=== PATIENT | female | born 1995 | race Caucasian/White ===

== ENCOUNTER 2022-11-02 11:04 | Observation (INO) | payer OTHER, SELFPAY ==
[2022-11-02] VITALS (10 sets, daily range): BP systolic 120–140; BP diastolic 71–84; PULSE 89–106; RESP 16
[2022-11-02 12:17] LABS: Basophils Absolute Auto 0.1 10^3/uL (0.0-0.1); Basophils Percent Auto 0.3 % (0.2-2.0); Eosinophils Absolute Auto 0.1 10^3/uL (0.0-0.7); Eosinophils Percent Auto 0.4 % (0.9-7.0); Hematocrit 36.2 % (36.0-48.0); Hemoglobin 11.5 g/dL (12.0-16.0); Immature Granulocytes Abs Auto 0.18 10^3/uL (0.00-0.03); Immature Granulocytes Pct Auto 1.1 % (0.0-0.5); Lymphocytes Absolute Auto 2.5 10^3/uL (1.2-3.8); Lymphocytes Percent Auto 15.9 % (20.5-60.0); Mean Corpuscular HGB Conc 31.8 g/dL (29.9-35.2); Mean Corpuscular Hemoglobin 27.1 pg (26.7-34.0); Mean Corpuscular Volume 85.2 fL (81.0-99.0); Mean Platelet Volume 11.3 fL (9.5-13.5); Monocytes Absolute Auto 0.8 10^3/uL (0.3-0.8); Monocytes Percent Auto 5.2 % (1.7-12.0); Neutrophils Absolute Auto 12.2 10^3/uL (1.4-6.5); Neutrophils Percent Auto 77.1 % (43.0-75.0); Platelet Count 271 10^3/uL (150-450); Red Blood Count 4.25 10^6/uL (4.20-5.40); Red Cell Distribution Width 14.7 % (11.0-15.0); White Blood Count 15.9 10^3/uL (4.0-11.0)
[2022-11-02 12:48] LABS: Alanine Aminotransferase 19 U/L (14-59); Albumin Globulin Ratio 0.5; Albumin Level 2.3 g/dL (3.4-5.0); Alkaline Phosphatase 155 U/L (46-116); Anion Gap 16.1; Aspartate Amino Transferase 16 U/L (15-37); BUN Creatinine Ratio 12.9; Bilirubin Total 0.2 mg/dL (0.2-1.0); Calcium 9.1 mg/dL (8.5-10.1); Carbon Dioxide 21.8 mmol/L (21.0-32.0); Chloride 102 mmol/L (98-107); Estimated GFR (African America >60 (>=60); Estimated GFR (Non-African Ame >60 (>=60); Globulin 4.5 g/dL; Glucose 75 mg/dL (74-106); Lactate Dehydrogenase 194 U/L (81-234); Potassium 3.9 mmol/L (3.5-5.1); Sodium 136 mmol/L (136-145); Total Protein 6.8 g/dL (6.4-8.2); Uric Acid 5.1 mg/dL (2.6-6.0)
[2022-11-02 13:24] LABS: Creatinine Urine Random 148.88 mg/dL (20.00-300.00); Total Protein Urine Random 44.4 mg/dL (<=11.9)
== END 2022-11-02 15:30 | disposition home or self-care (01) ==
LOC: FBC 11:07
PROVIDERS: Midwife; Admitting Provider Obstetrics & Gynecology; PCP Family Medicine; Visit Provider Obstetrics & Gynecology
DX: O16.9 Unspecified maternal hypertension, unspecified trimester (principal); Z3A.00 Weeks of gestation of pregnancy not specified
CPT/HCPCS: 36415; 59025; 80053; 82570; 83615; 84156; 84550; 85025; G0378; G0379

== ENCOUNTER 2022-11-03 10:55 | Inpatient (IN) | payer OTHER, SELFPAY ==
[2022-11-03] VITALS (31 sets, daily range): BP systolic 82–139; BP diastolic 54–93; PULSE 66–129; RESP 10–30; TEMP 36.4–36.9; O2SAT 97–100
--- NOTE | 2022-11-03 11:30 | PM.OBHP ---
OB - H&P: HPI History of Present Illness Chief complaint: C SECTION : 1 Para: 0 Gestational age based on last menstrual period: 38 w 4d Indications for induction: maternal hypertension and other History of Present Dating criteria: LMP confirmed by 1st trimester US care: good care Ultrasounds: normal 1st trimester US and normal mid trimester US complications comment: elevated blood pressure third trimester Medical complications OB: none Labs Blood type: O (+) positive Rubella: nonimmune RPR/VDLR: nonreactive GBS status: negative HBsAG: negative Review of Systems ROS Status of ROS 10 or more systems reviewed and unremarkable except as noted in history and below Meds Home Medications and Allergies Allergies Allergy/AdvReac Type Severity Reaction Status Date / Time Penicillins Allergy Mild Verified 11/02/22 16:36 Exam Constitutional Vital Signs - 24 hr 11/03/22 11:28 Pulse Rate 92 H Blood Pressure 139/93 H Common normals: no apparent distress
[2022-11-03] MEDS: CITRIC ACID/SODIUM CITRATE 30 ML SOLUTION ORACIT SHOHL'S SOLN PO (11:58)
[2022-11-03] MEDS: CEFAZOLIN SODIUM/DEXTROSE 2 GM/50 ML PIGGYBACK IV (12:00)
[2022-11-03] MEDS: 0.9 % SODIUM CHLORIDE 1,000 ML 1000 ML IV ×2 (12:07→12:55)
[2022-11-03 12:36] LABS: Amphetamine Screen Urine NEGATIVE (NEGATIVE); Barbiturates Screen Urine NEGATIVE (NEGATIVE); Benzodiazepines Screen Urine NEGATIVE (NEGATIVE); Buprenorphine Screen Urine NEGATIVE (NEGATIVE); Cannabinoid Screen Urine NEGATIVE (NEGATIVE); Cocaine Screen Urine NEGATIVE (NEGATIVE); Methadone Screen Urine NEGATIVE (NEGATIVE); Methamphetamines Screen Urine NEGATIVE (NEGATIVE); Opiate Screen Urine NEGATIVE (NEGATIVE); Oxycodone Screen Urine NEGATIVE (NEGATIVE); Phencyclidine Screen Urine NEGATIVE (NEGATIVE); Tricyclic Antidepressant Urine NEGATIVE (NEGATIVE)
[2022-11-03 12:54] LABS: Basophils Absolute Auto 0.1 10^3/uL (0.0-0.1); Basophils Percent Auto 0.3 % (0.2-2.0); Eosinophils Absolute Auto 0.1 10^3/uL (0.0-0.7); Eosinophils Percent Auto 0.6 % (0.9-7.0); Hematocrit 36.2 % (36.0-48.0); Hemoglobin 11.8 g/dL (12.0-16.0); Immature Granulocytes Abs Auto 0.17 10^3/uL (0.00-0.03); Lymphocytes Absolute Auto 3.7 10^3/uL (1.2-3.8); Lymphocytes Percent Auto 21.1 % (20.5-60.0); Mean Corpuscular HGB Conc 32.6 g/dL (29.9-35.2); Mean Corpuscular Hemoglobin 27.2 pg (26.7-34.0); Mean Corpuscular Volume 83.4 fL (81.0-99.0); Mean Platelet Volume 11.1 fL (9.5-13.5); Monocytes Percent Auto 5.7 % (1.7-12.0); Neutrophils Absolute Auto 12.4 10^3/uL (1.4-6.5); Neutrophils Percent Auto 71.3 % (43.0-75.0); Platelet Count 315 10^3/uL (150-450); Red Blood Count 4.34 10^6/uL (4.20-5.40); Red Cell Distribution Width 14.7 % (11.0-15.0); White Blood Count 17.3 10^3/uL (4.0-11.0)
--- NOTE | 2022-11-03 13:42 | PM.ONB ---
Brief Operative Note Date of procedure: 11/03/22 Pre-op diagnosis: iup at 38 4/7wks, breech presentation Post-op diagnosis: same Procedure: Patient was taken back to the Operating Room where she was given a spinal anesthesia with Duramorph without difficulty. She was prepped and draped in the normal sterile fashion. A Pfannenstiel skin incision was then made 2?cm above the symphysis pubis and carried down to underlying rectus fascia using a Bovie. The fascia was incised in the midline and extended laterally using Reza scissors. Two Sivan clamps were placed on the superior aspect of the fascia and dissected off the underlying rectus muscles. The same was performed on the inferior aspect as well. The muscles were then in the midline. Peritoneum was identified and entered bluntly. The peritoneum was then extended superiorly and inferiorly with good visualization of the bladder. The bladder blade was inserted. Vesicouterine peritoneum was identified, tented up, and entered with Metzenbaum scissors. A bladder flap was then created digitally. The bladder blade was reinserted. A low transverse incision was made on the patient's uterus and extended laterally digitally. The was then delivered atraumatically after the bladder blade was removed in the breech position. The cord was clamped and cut. Cord blood was obtained. The infant was handed off to awaiting team. The patient's placenta was spontaneously delivered. The uterus was then exteriorized. The uterus was cleared of all clots and debris. The bladder blade was reinserted. The patient's uterine incision was closed using #0 Vicryl in a running lock fashion. Excellent hemostasis was assured.? The uterus was then returned to the patient's abdomen. The patient's abdomen was copiously irrigated using warm saline. Peritoneal gutters were cleared of all clots and debris. Again excellent hemostasis was assured. The patient's peritoneum was closed using 3?0?Vicryl in a running fashion. The patient's fascia was closed using #0 Vicryl in a running fashion. The patient's skin was closed using 4-0 Vicryl subcuticularly. The patient tolerated the procedure well. Sponge, lap, and needle counts were correct x2. The patient was taken to the Recovery Room in stable condition. Anesthesia: spinal Surgeon: Forrest Clark Job Placement Officer: GLORIA GABRIEL Estimated blood loss (mL): 700 Pathology: none sent Condition: stable Disposition: PACU
[2022-11-03] MEDS: ONDANSETRON PF 4 MG/2 ML VIAL IV (15:15)
--- NOTE | 2022-11-03 15:15 | PC.NURSE ---
1415 Patient was cleansed and chux and gown changed. Oliver care provided.
--- NOTE | 2022-11-03 15:32 | RESP.RT ---
Done per nursing
--- NOTE | 2022-11-03 16:19 | PC.NURSE ---
1411- Report from Mary. Care assumed after bedside report. Nb to breast, gown changed, piper care provided.
[2022-11-03] MEDS: KETOROLAC TROMETHAMINE 30 MG/ML VIAL IVP (19:31)
[2022-11-03] MEDS: CEFAZOLIN SODIUM/DEXTROSE,ISO 2 GM/50 ML PIGGYBACK IV (20:58)
--- NOTE | 2022-11-03 21:33 | W.PC.ACHO ---
Registration Status: ADM IN Primary Language: Ugandan Preferred Language: Ugandan Active Medications Generic Name Dose Route Start Last Admin Trade Name Freq PRN Reason Stop Dose Admin Al Hydroxide/Mg Hydroxide 2,400 mg 11/03/22 13:33 Magnesium Hydroxide 2,400 Mg/10 Ml Oral.Susp PO Q6H PRN Dyspepsia Diphenhydramine HCl 25 mg 11/03/22 13:33 Diphenhydramine Hcl 50 Mg/Ml (1ml) Vial IV 11/04/22 13:38 Q6H PRN Itching Docusate Sodium 100 mg 11/04/22 09:00 Docusate Sodium 100 Mg Capsule PO BID ROSSANA Enoxaparin Sodium 40 mg 11/04/22 17:00 Enoxaparin Sodium 40 Mg/0.4 Ml Syringe SUBQ Q24H ROSSANA Sodium Chloride 1,000 mls @ 125 mls/hr 11/03/22 13:45 Sodium Chloride 0.9% 1,000 Ml IV .Q8H ROSSANA Oxytocin 20 unit/ Sodium 1,002 mls @ 125 mls/hr 11/03/22 13:45 11/03/22 15:04 Chloride IV 11/03/22 21:44 125 mls/hr Q8H ROSSANA 125 mls/hr Administration Ibuprofen 800 mg 11/03/22 13:33 Ibuprofen 400 Mg Tablet PO Q8H PRN Pain Ketorolac Tromethamine 30 mg 11/03/22 13:33 11/03/22 19:31 Ketorolac Tromethamine 30 Mg/Ml Vial IVP 11/05/22 13:34 30 mg Q6H PRN Administration Pain Nalbuphine HCl 10 mg 11/03/22 13:33 Nalbuphine Hcl 10 Mg/Ml Ampule IV 11/04/22 13:38 Q3H PRN Itching Ondansetron HCl 4 mg 11/03/22 13:33 11/03/22 15:15 Ondansetron Pf 4 Mg/2 Ml Vial IV 4 mg Q6H PRN Administration Nausea And Vomiting Oxycodone/Acetaminophen 1 each 11/03/22 13:33 Oxycodone Hcl/Acetaminophen 5-325 Mg Tablet PO Q4H PRN Pain Oxycodone/Acetaminophen 2 each 11/03/22 13:33 Oxycodone Hcl/Acetaminophen 5-325 Mg Tablet PO Q4H PRN Pain Senna 17.2 mg 11/03/22 20:00 Sennosides 8.6 Mg Tablet PO QHS PRN Constipation Simethicone 80 mg 11/03/22 13:33 Simethicone 80 Mg Tab.Chew PO QID PRN Abdominal Distention Diet Category Date Time Status Regular Consistency Diet Diet 11/03/22 Dinner Active Consults Category Date Time Status Consult to Anesthesiology Routine Cons 11/03/22 11:23 Ordered IV Insertion/Site Date of IV Line Insertion [ 11/03/22 Short PIV (<1.75 in) 20g left Antecubital] Date of IV Line Insertion [ 11/03/22 Short PIV (<1.75 in) 20g left Antecubital] IV Insertion Time [Short PIV ( 11:30 <1.75 in) 20g left Antecubital ] Neurology Patient orientation (short person,place,time list) Respiratory Pulse Oximetry 99 Pulse Oximetry 99 Pulse Oximetry 98 Pulse Oximetry 98 Pulse Oximetry 98 Pulse Oximetry 97 Pulse Oximetry 98 Pulse Oximetry 100 Pulse Oximetry 100 Oxygen Delivery Method Room Air Oxygen Delivery Method Room Air Oxygen Delivery Method Room Air Oxygen Delivery Method Room Air Catheter Urinary Catheter Date of 11/03/22 Insertion [Urethral] Urinary Catheter Time of 11:30 Insertion [Urethral]
--- NOTE | 2022-11-03 23:12 | PC.NURSE ---
Surgical dressing clean dry and intact.
[2022-11-04] VITALS (7 sets, daily range): BP systolic 105–123; BP diastolic 61–74; PULSE 86–91; RESP 14–18; TEMP 36.8–37.1
[2022-11-04] MEDS: KETOROLAC TROMETHAMINE 30 MG/ML VIAL IVP ×3 (02:09→15:07)
[2022-11-04 06:32] LABS: Basophils Percent Auto 0.3 % (0.2-2.0); Eosinophils Absolute Auto 0.1 10^3/uL (0.0-0.7); Eosinophils Percent Auto 0.4 % (0.9-7.0); Hematocrit 26.9 % (36.0-48.0); Hemoglobin 8.7 g/dL (12.0-16.0); Immature Granulocytes Abs Auto 0.18 10^3/uL (0.00-0.03); Immature Granulocytes Pct Auto 1.1 % (0.0-0.5); Lymphocytes Percent Auto 18.7 % (20.5-60.0); Mean Corpuscular HGB Conc 32.3 g/dL (29.9-35.2); Mean Corpuscular Hemoglobin 27.7 pg (26.7-34.0); Mean Corpuscular Volume 85.7 fL (81.0-99.0); Mean Platelet Volume 11.5 fL (9.5-13.5); Monocytes Absolute Auto 1.3 10^3/uL (0.3-0.8); Neutrophils Absolute Auto 11.3 10^3/uL (1.4-6.5); Neutrophils Percent Auto 71.5 % (43.0-75.0); Platelet Count 159 10^3/uL (150-450); Red Blood Count 3.14 10^6/uL (4.20-5.40); Red Cell Distribution Width 14.9 % (11.0-15.0); White Blood Count 15.8 10^3/uL (4.0-11.0)
--- NOTE | 2022-11-04 06:56 | PM.OBPN ---
OB - PN: Subj Subjective Patient comments: no complaints and pain well controlled Exam Constitutional Vital Signs - 24 hr 11/03/22 11:28 11/03/22 15:00 11/03/22 15:13 Temperature Pulse Rate 92 H 94 H 90 Respiratory Rate Blood Pressure 139/93 H 100/54 L 99/55 L Pulse Oximetry Oxygen Delivery Method 11/03/22 15:17 11/03/22 15:29 11/03/22 15:34 Temperature Pulse Rate 92 H 129 H 98 H Respiratory Rate Blood Pressure 100/58 L 131/86 H 107/57 L Pulse Oximetry Oxygen Delivery Method 11/03/22 15:43 11/03/22 15:58 11/03/22 16:13 Temperature Pulse Rate 88 89 101 H Respiratory Rate Blood Pressure 109/59 L 116/63 123/66 H Pulse Oximetry Oxygen Delivery Method 11/03/22 16:28 11/03/22 16:43 11/03/22 16:58 Temperature Pulse Rate 99 H 99 H 89 Respiratory Rate Blood Pressure 116/70 116/70 117/73 Pulse Oximetry Oxygen Delivery Method 11/03/22 17:13 11/03/22 17:28 11/03/22 17:43 Temperature Pulse Rate 88 99 H 91 H Respiratory Rate Blood Pressure 118/64 125/72 H 116/62 Pulse Oximetry Oxygen Delivery Method 11/03/22 13:41 11/03/22 13:51 11/03/22 14:11 Temperature 97.8 F Pulse Rate 109 H 99 H Respiratory Rate 14 12 Blood Pressure 103/57 L 98/62 Pulse Oximetry 100 99 Oxygen Delivery Method Room Air Room Air Room Air 11/03/22 13:43 11/03/22 13:46 11/03/22 13:51 Temperature Pulse Rate 123 H 66 83 Respiratory Rate 22 30 H 18 Blood Pressure 103/57 L 82/58 L 131/70 H Pulse Oximetry 100 98 97 Oxygen Delivery Method 11/03/22 13:56 11/03/22 14:00 11/03/22 14:00 Temperature Pulse Rate 88 113 H 90 Respiratory Rate 10 L 21 11 L Blood Pressure 107/62 Pulse Oximetry 98 98 98 Oxygen Delivery Method 11/03/22 14:05 11/03/22 16:09 11/03/22 14:11 Temperature 98.4 F 98.4 F Pulse Rate 105 H Respiratory Rate 14 18 18 Blood Pressure 98/62 Pulse Oximetry 99 Oxygen Delivery Method Room Air 11/03/22 16:47 11/03/22 17:58 11/03/22 18:13 Temperature 98 F Pulse Rate 90 98 H Respiratory Rate 18 Blood Pressure 122/65 H 115/69 Pulse Oximetry Oxygen Delivery Method 11/03/22 18:28 11/03/22 18:43 11/03/22 21:34 Temperature Pulse Rate 106 H 105 H 87 Respiratory Rate Blood Pressure 117/74 123/73 H 111/69 Pulse Oximetry Oxygen Delivery Method 11/04/22 02:20 11/04/22 05:19 11/03/22 21:30 Temperature Pulse Rate 86 91 H Respiratory Rate 16 Blood Pressure 105/63 123/74 H Pulse Oximetry Oxygen Delivery Method Room Air 11/03/22 21:30 11/04/22 02:20 11/04/22 02:20 Temperature 97.6 F 98.7 F Pulse Rate 86 Respiratory Rate 14 14 Blood Pressure Pulse Oximetry Oxygen Delivery Method Room Air Room Air Documenting provider has reviewed patient's vital signs: yes Common normals: no apparent distress Respiratory Common normals: normal respiratory effort and clear to auscultation bilaterally Cardio Common normals: regular rate and regular rhythm GI Common normals: Normal to inspection, nondistended, normoactive bowel sounds present, soft to palpation and non-tender Extremity Common normals: normal to inspection, no clubbing, cyanosis or edema and no calf tenderness Results Labs Labs: Short CBC 11/03/22 11/04/22 Range/Units 12:45 06:18 WBC 17.3 H 15.8 H (4.0-11.0) 10^3/uL Hgb 11.8 L 8.7 L (12.0-16.0) g/dL Hct 36.2 26.9 L (36.0-48.0) % Plt Count 315 159 (150-450) 10^3/uL OB - PN: A/P Plan - Vaginal Delivery day: 1 Plan: routine care and discharge home Time Spent with Patient Time: Total time spent is greater than 50% in coordination of care (as documented) at patient's floor/unit and/or counseling patient: Total time spent with greater than 50% in coordination of care (as documented) at patient's floor/unit and/or counseling patient: less than 15 minutes
--- NOTE | 2022-11-04 07:43 | W.PC.ACHO ---
Registration Status: ADM IN Primary Language: Welsh Preferred Language: Welsh 0720- Report given to Pura Holcomb RN Active Medications Generic Name Dose Route Start Last Admin Trade Name Freq PRN Reason Stop Dose Admin Al Hydroxide/Mg Hydroxide 2,400 mg 11/03/22 13:33 Magnesium Hydroxide 2,400 Mg/10 Ml Oral.Susp PO Q6H PRN Dyspepsia Diphenhydramine HCl 25 mg 11/03/22 13:33 Diphenhydramine Hcl 50 Mg/Ml (1ml) Vial IV 11/04/22 13:38 Q6H PRN Itching Docusate Sodium 100 mg 11/04/22 09:00 Docusate Sodium 100 Mg Capsule PO BID ROSSANA Enoxaparin Sodium 40 mg 11/04/22 17:00 Enoxaparin Sodium 40 Mg/0.4 Ml Syringe SUBQ Q24H ROSSANA Sodium Chloride 1,000 mls @ 125 mls/hr 11/03/22 13:45 Sodium Chloride 0.9% 1,000 Ml IV .Q8H ROSSANA Ibuprofen 800 mg 11/03/22 13:33 Ibuprofen 400 Mg Tablet PO Q8H PRN Pain Ketorolac Tromethamine 30 mg 11/03/22 13:33 11/04/22 02:09 Ketorolac Tromethamine 30 Mg/Ml Vial IVP 11/05/22 13:34 30 mg Q6H PRN Administration Pain Nalbuphine HCl 10 mg 11/03/22 13:33 Nalbuphine Hcl 10 Mg/Ml Ampule IV 11/04/22 13:38 Q3H PRN Itching Ondansetron HCl 4 mg 11/03/22 13:33 11/03/22 15:15 Ondansetron Pf 4 Mg/2 Ml Vial IV 4 mg Q6H PRN Administration Nausea And Vomiting Oxycodone/Acetaminophen 1 each 11/03/22 13:33 Oxycodone Hcl/Acetaminophen 5-325 Mg Tablet PO Q4H PRN Pain Oxycodone/Acetaminophen 2 each 11/03/22 13:33 Oxycodone Hcl/Acetaminophen 5-325 Mg Tablet PO Q4H PRN Pain Senna 17.2 mg 11/03/22 20:00 Sennosides 8.6 Mg Tablet PO QHS PRN Constipation Simethicone 80 mg 11/03/22 13:33 Simethicone 80 Mg Tab.Chew PO QID PRN Abdominal Distention Diet Category Date Time Status Regular Consistency Diet Diet 11/03/22 Dinner Active Consults Category Date Time Status Consult to Anesthesiology Routine Cons 11/03/22 11:23 Ordered IV Insertion/Site Date of IV Line Insertion [22g 11/04/22 left Forearm] Date of IV Line Insertion [ 11/03/22 Short PIV (<1.75 in) 20g left Antecubital] Date of IV Line Insertion [ 11/03/22 Short PIV (<1.75 in) 20g left Antecubital] IV Insertion Time [22g left 02:00 Forearm] IV Insertion Time [Short PIV ( 11:30 <1.75 in) 20g left Antecubital ] Neurology Patient orientation (short person,place,time list) [place] coma scale total score 15 Reva coma scale total score 15 [place] coma scale total score 15 Respiratory Lung sounds [Throughout] clear Lung sounds [Throughout] clear Lung sounds [Throughout] clear Pulse Oximetry 99 Pulse Oximetry 99 Pulse Oximetry 98 Pulse Oximetry 98 Pulse Oximetry 98 Pulse Oximetry 97 Pulse Oximetry 98 Pulse Oximetry 100 Pulse Oximetry 100 Oxygen Delivery Method Room Air Oxygen Delivery Method Room Air Oxygen Delivery Method Room Air Oxygen Delivery Method Room Air Oxygen Delivery Method Room Air Oxygen Delivery Method Room Air Oxygen Delivery Method Room Air Oxygen Delivery Method Room Air Oxygen Delivery Method Room Air Bowels Bowel Pattern No Bowel Movement Bowel Pattern No Bowel Movement Bowel Pattern No Bowel Movement Renal Bladder Pattern Continent Bladder Pattern Continent Bladder Pattern Continent Catheter Urinary Catheter Date of 11/03/22 Insertion [Urethral] Urinary Catheter Time of 11:30 Insertion [Urethral]
[2022-11-04] MEDS: DOCUSATE SODIUM 100 MG CAPSULE PO ×2 (09:11→20:54)
[2022-11-04] MEDS: ENOXAPARIN SODIUM 40 MG/0.4 ML SYRINGE SUBQ (18:30)
[2022-11-04] MEDS: ACETAMINOPHEN 500 MG TABLET 1000 MG PO (18:30)
--- NOTE | 2022-11-04 19:38 | W.PC.ACHO ---
Registration Status: ADM IN Primary Language: Greek Preferred Language: Greek Report given to Otoniel CANTU at 1920 Active Medications Generic Name Dose Route Start Last Admin Trade Name Freq PRN Reason Stop Dose Admin Acetaminophen 1,000 mg 11/04/22 18:10 11/04/22 18:30 Acetaminophen 500 Mg Tablet PO 1,000 mg Q6H PRN Administration Pain Al Hydroxide/Mg Hydroxide 2,400 mg 11/03/22 13:33 Magnesium Hydroxide 2,400 Mg/10 Ml Oral.Susp PO Q6H PRN Dyspepsia Docusate Sodium 100 mg 11/04/22 09:00 11/04/22 09:11 Docusate Sodium 100 Mg Capsule PO 100 mg BID ROSSANA Administration Enoxaparin Sodium 40 mg 11/04/22 17:00 11/04/22 18:30 Enoxaparin Sodium 40 Mg/0.4 Ml Syringe SUBQ 40 mg Q24H ROSSANA Administration Sodium Chloride 1,000 mls @ 125 mls/hr 11/03/22 13:45 Sodium Chloride 0.9% 1,000 Ml IV .Q8H ROSSANA Ibuprofen 800 mg 11/03/22 13:33 Ibuprofen 400 Mg Tablet PO Q8H PRN Pain Ketorolac Tromethamine 30 mg 11/03/22 13:33 11/04/22 15:07 Ketorolac Tromethamine 30 Mg/Ml Vial IVP 11/05/22 13:34 30 mg Q6H PRN Administration Pain Ondansetron HCl 4 mg 11/03/22 13:33 11/03/22 15:15 Ondansetron Pf 4 Mg/2 Ml Vial IV 4 mg Q6H PRN Administration Nausea And Vomiting Oxycodone/Acetaminophen 1 each 11/03/22 13:33 Oxycodone Hcl/Acetaminophen 5-325 Mg Tablet PO Q4H PRN Pain Oxycodone/Acetaminophen 2 each 11/03/22 13:33 Oxycodone Hcl/Acetaminophen 5-325 Mg Tablet PO Q4H PRN Pain Senna 17.2 mg 11/03/22 20:00 Sennosides 8.6 Mg Tablet PO QHS PRN Constipation Simethicone 80 mg 11/03/22 13:33 Simethicone 80 Mg Tab.Chew PO QID PRN Abdominal Distention IV Insertion/Site Date of IV Line Insertion [22g 11/04/22 left Forearm] IV Insertion Time [22g left 02:00 Forearm] Neurology [place] coma scale total score 15 [place] coma scale total score 15 [place] coma scale total score 15 Respiratory Lung sounds [Throughout] clear Lung sounds [Throughout] clear Lung sounds [Throughout] clear Oxygen Delivery Method Room Air Oxygen Delivery Method Room Air Oxygen Delivery Method Room Air Oxygen Delivery Method Room Air Oxygen Delivery Method Room Air Bowels Bowel Pattern No Bowel Movement Bowel Pattern No Bowel Movement Bowel Pattern No Bowel Movement Renal Bladder Pattern Continent Bladder Pattern Continent Bladder Pattern Continent Catheter Date Urinary Catheter Removed 11/04/22 [Urethral] Date Urinary Catheter Removed 11/04/22 Time Urinary Catheter 09:30 Discontinued [Urethral]
[2022-11-04] MEDS: IBUPROFEN 400 MG TABLET 800 MG PO (21:04)
[2022-11-05] MEDS: ACETAMINOPHEN 500 MG TABLET 1000 MG PO ×4 (00:01→23:55)
[2022-11-05 00:04] VITALS: BP 115/62; PULSE 88; RESP 14; TEMP 36.4
[2022-11-05] MEDS: IBUPROFEN 400 MG TABLET 800 MG PO ×3 (05:26→23:55)
--- NOTE | 2022-11-05 05:47 | PC.NURSE ---
Surgical dressing removed to allow incision open to air. Patient educated to keep area dry and open to the air. Brown blood present on steristrips, no active bleeding noted.
--- NOTE | 2022-11-05 07:27 | W.PC.ACHO ---
Registration Status: ADM IN Primary Language: Luxembourger Preferred Language: Luxembourger Active Medications 0720- Report given to Pura Holcomb RN Generic Name Dose Route Start Last Admin Trade Name Freq PRN Reason Stop Dose Admin Acetaminophen 1,000 mg 11/04/22 18:10 11/05/22 06:27 Acetaminophen 500 Mg Tablet PO 1,000 mg Q6H PRN Administration Pain Al Hydroxide/Mg Hydroxide 2,400 mg 11/03/22 13:33 Magnesium Hydroxide 2,400 Mg/10 Ml Oral.Susp PO Q6H PRN Dyspepsia Docusate Sodium 100 mg 11/04/22 09:00 11/04/22 20:54 Docusate Sodium 100 Mg Capsule PO 100 mg BID ROSSANA Administration Enoxaparin Sodium 40 mg 11/04/22 17:00 11/04/22 18:30 Enoxaparin Sodium 40 Mg/0.4 Ml Syringe SUBQ 40 mg Q24H ROSSANA Administration Sodium Chloride 1,000 mls @ 125 mls/hr 11/03/22 13:45 Sodium Chloride 0.9% 1,000 Ml IV .Q8H ROSSANA Ibuprofen 800 mg 11/03/22 13:33 11/05/22 05:26 Ibuprofen 400 Mg Tablet PO 800 mg Q8H PRN Administration Pain Ketorolac Tromethamine 30 mg 11/03/22 13:33 11/04/22 15:07 Ketorolac Tromethamine 30 Mg/Ml Vial IVP 11/05/22 13:34 30 mg Q6H PRN Administration Pain Ondansetron HCl 4 mg 11/03/22 13:33 11/03/22 15:15 Ondansetron Pf 4 Mg/2 Ml Vial IV 4 mg Q6H PRN Administration Nausea And Vomiting Oxycodone/Acetaminophen 1 each 11/03/22 13:33 Oxycodone Hcl/Acetaminophen 5-325 Mg Tablet PO Q4H PRN Pain Oxycodone/Acetaminophen 2 each 11/03/22 13:33 Oxycodone Hcl/Acetaminophen 5-325 Mg Tablet PO Q4H PRN Pain Senna 17.2 mg 11/03/22 20:00 Sennosides 8.6 Mg Tablet PO QHS PRN Constipation Simethicone 80 mg 11/03/22 13:33 Simethicone 80 Mg Tab.Chew PO QID PRN Abdominal Distention Neurology [place] coma scale total score 15 Respiratory Lung sounds [Throughout] clear Oxygen Delivery Method Room Air Bowels Bowel Pattern No Bowel Movement Renal Bladder Pattern Continent Catheter Date Urinary Catheter Removed 11/04/22 [Urethral] Date Urinary Catheter Removed 11/04/22 Time Urinary Catheter 09:30 Discontinued [Urethral]
[2022-11-05 08:35] VITALS: BP 121/64; PULSE 86; RESP 18; TEMP 36.8
[2022-11-05] MEDS: DOCUSATE SODIUM 100 MG CAPSULE PO ×2 (08:36→23:55)
--- NOTE | 2022-11-05 10:41 | P.OBPN_ITS ---
OB - PN: Subj Subjective Patient comments: no complaints [place] status: doing well feeding status: exclusively Narrative: patient doing well, she is not sure if she wants to go home today or stay until tomorrow. She states the bed makes alona back hurt, but she wants to stay as she feels like she may need more support and assistance with learning her pump. I did discuss with her she can stay until day #3 which is tomorrow. PVU and will let us know what she decides. Exam Constitutional Vital Signs - 24 hr 11/04/22 18:04 11/05/22 00:04 11/05/22 08:35 Temperature Pulse Rate 90 88 86 Respiratory Rate Blood Pressure 123/74 H 115/62 121/64 H Oxygen Delivery Method 11/04/22 18:05 11/05/22 00:04 11/05/22 00:04 Temperature 98.2 F 97.6 F Pulse Rate Respiratory Rate 18 14 14 Blood Pressure Oxygen Delivery Method Room Air 11/05/22 08:35 Temperature 98.3 F Pulse Rate Respiratory Rate 18 Blood Pressure Oxygen Delivery Method Documenting provider has reviewed patient's vital signs: yes Common normals: no apparent distress General appearance: cooperative Orientation/consciousness: Yes awake HENMT Common normals: normocephalic Chest Common normals: inspection of chest normal Respiratory Common normals: normal respiratory effort Auscultation: clear to auscultation bilaterally Cardio Common normals: no JVD, regular rate and regular rhythm GI Common normals: Normal to inspection, nondistended, normoactive bowel sounds present Inspection: normal to inspection Palpation: soft and firm Common normals: no CVA tenderness OB - PN: A/P Time Spent with Patient Time: Total time spent is greater than 50% in coordination of care (as documented) at patient's floor/unit and/or counseling patient: Total time spent with greater than 50% in coordination of care (as documented) at patient's floor/unit and/or counseling patient: less than 15 minutes
[2022-11-05 17:58] VITALS: BP 123/63; PULSE 97
[2022-11-05 18:00] VITALS: RESP 18; TEMP 36.6
--- NOTE | 2022-11-05 19:11 | W.PC.ACHO ---
Registration Status: ADM IN Primary Language: Belarusian Preferred Language: Belarusian report given to Otoniel CANTU Active Medications Generic Name Dose Route Start Last Admin Trade Name Freq PRN Reason Stop Dose Admin Acetaminophen 1,000 mg 11/04/22 18:10 11/05/22 17:58 Acetaminophen 500 Mg Tablet PO 1,000 mg Q6H PRN Administration Pain Al Hydroxide/Mg Hydroxide 2,400 mg 11/03/22 13:33 Magnesium Hydroxide 2,400 Mg/10 Ml Oral.Susp PO Q6H PRN Dyspepsia Docusate Sodium 100 mg 11/04/22 09:00 11/05/22 08:36 Docusate Sodium 100 Mg Capsule PO 100 mg BID ROSSANA Administration Enoxaparin Sodium 40 mg 11/04/22 17:00 11/04/22 18:30 Enoxaparin Sodium 40 Mg/0.4 Ml Syringe SUBQ 40 mg Q24H ROSSANA Administration Sodium Chloride 1,000 mls @ 125 mls/hr 11/03/22 13:45 Sodium Chloride 0.9% 1,000 Ml IV .Q8H ROSSANA Ibuprofen 800 mg 11/03/22 13:33 11/05/22 15:20 Ibuprofen 400 Mg Tablet PO 800 mg Q8H PRN Administration Pain Ondansetron HCl 4 mg 11/03/22 13:33 11/03/22 15:15 Ondansetron Pf 4 Mg/2 Ml Vial IV 4 mg Q6H PRN Administration Nausea And Vomiting Oxycodone/Acetaminophen 1 each 11/03/22 13:33 Oxycodone Hcl/Acetaminophen 5-325 Mg Tablet PO Q4H PRN Pain Oxycodone/Acetaminophen 2 each 11/03/22 13:33 Oxycodone Hcl/Acetaminophen 5-325 Mg Tablet PO Q4H PRN Pain Senna 17.2 mg 11/03/22 20:00 Sennosides 8.6 Mg Tablet PO QHS PRN Constipation Simethicone 80 mg 11/03/22 13:33 Simethicone 80 Mg Tab.Chew PO QID PRN Abdominal Distention Neurology [place] coma scale total score 15 Respiratory Lung sounds [Throughout] clear Oxygen Delivery Method Room Air Oxygen Delivery Method Room Air Bowels Bowel Pattern No Bowel Movement Date of Last Bowel Movement [ 11/05/22 All Quadrants] Renal Bladder Pattern Continent
[2022-11-06] VITALS: RESP 16; TEMP 36.4
[2022-11-06 00:02] VITALS: BP 123/65; PULSE 95
[2022-11-06] MEDS: ACETAMINOPHEN 500 MG TABLET 1000 MG PO (06:48)
--- NOTE | 2022-11-06 07:30 | W.PC.ACHO ---
Registration Status: ADM IN Primary Language: Liberian Preferred Language: Liberian Active Medications Report given to Darrel Harvey RN at 0715 Generic Name Dose Route Start Last Admin Trade Name Freq PRN Reason Stop Dose Admin Acetaminophen 1,000 mg 11/04/22 18:10 11/06/22 06:48 Acetaminophen 500 Mg Tablet PO 1,000 mg Q6H PRN Administration Pain Al Hydroxide/Mg Hydroxide 2,400 mg 11/03/22 13:33 Magnesium Hydroxide 2,400 Mg/10 Ml Oral.Susp PO Q6H PRN Dyspepsia Docusate Sodium 100 mg 11/04/22 09:00 11/05/22 23:55 Docusate Sodium 100 Mg Capsule PO 100 mg BID ROSSANA Administration Enoxaparin Sodium 40 mg 11/04/22 17:00 11/04/22 18:30 Enoxaparin Sodium 40 Mg/0.4 Ml Syringe SUBQ 40 mg Q24H ROSSANA Administration Sodium Chloride 1,000 mls @ 125 mls/hr 11/03/22 13:45 Sodium Chloride 0.9% 1,000 Ml IV .Q8H ROSSANA Ibuprofen 800 mg 11/03/22 13:33 11/05/22 23:55 Ibuprofen 400 Mg Tablet PO 800 mg Q8H PRN Administration Pain Ondansetron HCl 4 mg 11/03/22 13:33 11/03/22 15:15 Ondansetron Pf 4 Mg/2 Ml Vial IV 4 mg Q6H PRN Administration Nausea And Vomiting Oxycodone/Acetaminophen 1 each 11/03/22 13:33 Oxycodone Hcl/Acetaminophen 5-325 Mg Tablet PO Q4H PRN Pain Oxycodone/Acetaminophen 2 each 11/03/22 13:33 Oxycodone Hcl/Acetaminophen 5-325 Mg Tablet PO Q4H PRN Pain Senna 17.2 mg 11/03/22 20:00 Sennosides 8.6 Mg Tablet PO QHS PRN Constipation Simethicone 80 mg 11/03/22 13:33 Simethicone 80 Mg Tab.Chew PO QID PRN Abdominal Distention Neurology [place] coma scale total score 15 Respiratory Lung sounds [Throughout] clear Oxygen Delivery Method Room Air Oxygen Delivery Method Room Air Bowels Date of Last Bowel Movement [ 11/05/22 All Quadrants] Renal Bladder Pattern Continent
--- NOTE | 2022-11-06 07:58 | P.OBPN_ITS ---
OB - PN: Subj Subjective Patient comments: no complaints [place] status: doing well Exam Constitutional Vital Signs - 24 hr 11/05/22 08:35 11/05/22 17:58 11/06/22 00:02 Temperature Pulse Rate 86 97 H 95 H Respiratory Rate Blood Pressure 121/64 H 123/63 H 123/65 H Oxygen Delivery Method 11/05/22 08:35 11/05/22 18:00 11/05/22 18:00 Temperature 98.3 F 97.9 F Pulse Rate Respiratory Rate 18 18 Blood Pressure Oxygen Delivery Method Room Air 11/06/22 00:00 11/06/22 00:00 Temperature 97.6 F Pulse Rate Respiratory Rate 16 16 Blood Pressure Oxygen Delivery Method Room Air Documenting provider has reviewed patient's vital signs: yes Common normals: no apparent distress Respiratory Common normals: normal respiratory effort and clear to auscultation bilaterally Cardio Common normals: regular rate and regular rhythm GI Common normals: Normal to inspection, nondistended, normoactive bowel sounds present Extremity Common normals: normal to inspection, no clubbing, cyanosis or edema and no calf tenderness OB - PN: A/P Plan - day: 3 Plan: routine postop care, discharge home and follow up 6 weeks Time Spent with Patient Time: Total time spent is greater than 50% in coordination of care (as documented) at patient's floor/unit and/or counseling patient: Total time spent with greater than 50% in coordination of care (as documented) at patient's floor/unit and/or counseling patient: less than 15 minutes
[2022-11-06 08:18] VITALS: BP 130/72; PULSE 97
[2022-11-06] MEDS: DOCUSATE SODIUM 100 MG CAPSULE PO (08:23)
[2022-11-06] MEDS: IBUPROFEN 400 MG TABLET 800 MG PO (08:23)
[2022-11-06 11:44] VITALS: RESP 18
[2022-11-06] MEDS: MEASLES,MUMPS,RUBELLA VACC/PF 0.5 ML VIAL SQ (13:55)
--- NOTE | 2022-11-30 | DS_ITS ---
DISCHARGE DATE: ??11/30/2022 PRIMARY DIAGNOSES: 1.? Intrauterine at term gestation. 2.? Previous . PROCEDURE:? Repeat low transverse section. HOSPITAL COURSE:? As expected.? Please see chart for full details.? LABORATORY DATA:? Please see chart. COMPLICATIONS:? None. DISCHARGE CONDITION:? Stable. CONSULTATION:? Anesthesia. DISCHARGE INSTRUCTIONS: 1.? Diet:? Regular. 2.? Medications: a.? Percocet 5/325 one to two p.o. every 4-6 hours p.r.n. pain. b.? Motrin 800 one p.o. every 8 hours p.r.n. pain. 3.? Followup in one week. Restrictions:? Pelvic rest for 6 weeks.? No heavy lifting.? May drive when pain free and no longer on narcotics. MTDD
--- NOTE | 2022-11-30 18:16 | PM.OBPRCCS ---
Procedure Pre-op/Post-op diagnoses: Pre-Op/Post-Op Diagnoses Operation Date: 11/03/22 12:00 <No data on this case meets the specified criteria> Procedure: Procedures Operation Date: 11/03/22 12:00 Actual Procedure Side Surgeon p Not Applicable Forrest Clark DO Materials Development Engineer: Forrest Clark Estimated blood loss (mL): 575 Disposition: floor Anesthesia type: Spinal Infant heart rate - 1 minute: 100 bpm or Greater respiratory effort - 1 minute: Spontaneous/Strong Cry muscle tone - 1 minute: Active Movement reflex response - 1 minute: Prompt Response color - 1 minute: Bluish Hands or Feet total score - 1 minute: 9 heart rate - 5 minute: 100 bpm or Greater respiratory effort - 5 minute: Spontaneous/Strong Cry muscle tone - 5 minute: Active Movement reflex response - 5 minute: Prompt Response color - 5 minute: Bluish Hands or Feet total score - 5 minute: 9
== END 2022-11-06 15:00 | disposition home or self-care (01) | DRG 788 ==
PROVIDERS: Admitting Provider Midwife; PCP Family Medicine; Visit Provider Obstetrics & Gynecology
PROC: 10D00Z1 Extraction of Products of Conception, Low, Open Approach (ICD-10-PCS; CPT 59514; principal; 2022-11-03 12:00)
DX: O32.1XX0 Maternal care for breech presentation, not applicable or unspecified (principal); O16.4 Unspecified maternal hypertension, complicating childbirth; Z3A.38 38 weeks gestation of pregnancy; Z37.0 Single live birth; O99.62 Diseases of the digestive system complicating childbirth; K21.9 Gastro-esophageal reflux disease without esophagitis; Z88.0 Allergy status to penicillin
CPT/HCPCS: 36415; 59025; 59050; 80307; 85025; 86850; 86900; 86901; 90471; 90707; 94667; 96372; 96374; 96376

== ENCOUNTER 2022-11-08 10:15 | Outpatient (RCR) | payer OTHER, SELFPAY ==
[2022-11-08 14:17] VITALS: BP 132/85; PULSE 88; RESP 18; TEMP 36.6
== END 2022-11-08 14:22 | disposition home or self-care (01) ==
LOC: FBCO 10:15
PROVIDERS: PCP Family Medicine; Visit Provider Midwife
DX: Z39.2 Encounter for routine postpartum follow-up (principal)